=== PATIENT | male | born 1985 | race Caucasian/White ===

== ENCOUNTER 2018-12-21 19:59 | Emergency (ER) | payer OTHER ==
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
[2018-12-21] MEDS ORDERED: cefTRIAXone 1 GM, Lidocaine 1% 2.1 ML IM ONE ×2 (20:23)
--- NOTE | 2018-12-21 20:51 | CR ---
[id number] RAD/RAD Hand Right 3V Exam: RAD Hand Right 3V Indication:FALL Comparison: No prior imaging for comparison. Discussion: Acute fracture of the 1st digit metacarpal. Fracture is multidirectional slightly displaced, demonstrating 3 mm of displacement at the major fracture site. Proximal aspect of the fracture may extend into the 1st digit CMC joint. No other fractures are identified. Impression: As above. Smooth Sotomayor MD 12/21/18 711 Thank you for allowing us to participate in the care of your patient.
[2018-12-21] MEDS ORDERED: Take Home: Cephalexin 250 MG Cap, 4 Cap Pack PO ONE (21:10)
[2018-12-21] MEDS ORDERED: Take Home: Ketorolac 10 MG Tab, 4 Tab Pack PO ONE (21:20)
== END 2018-12-21 21:36 ==
LOC: VM.ED 19:59
DX: S62.511A Displaced fracture of proximal phalanx of right thumb, initial encounter for closed fracture (principal); S62.660A Nondisplaced fracture of distal phalanx of right index finger, initial encounter for closed fracture; S62.231A Other displaced fracture of base of first metacarpal bone, right hand, initial encounter for closed fracture; L08.9 Local infection of the skin and subcutaneous tissue, unspecified; V29.9XXA Motorcycle rider (driver) (passenger) injured in unspecified traffic accident, initial encounter
CPT/HCPCS: 28190; 73130-RT; 99283-25; 99283-GF; A9270-GY